=== PATIENT | male | born 1955 | race Caucasian/White ===

== ENCOUNTER 2019-04-04 15:41 | Emergency (ER) ==
[2019-04-04 15:44] VITALS: BMI 31.9
--- NOTE | 2019-04-04 16:08 | ED.PDOC ---
General Stated Complaint: Left hip pain X 2 weeks. 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 Denies difficulty with urination or BM. Pain L hip with ambulation. Nothing makes bettter but by preference lays on right side or back. No falls or precipitating event Time Seen by Physician: 16:00 Mode of Arrival: Wheelchair Information Source: Patient Exam Limitations: No limitations Nursing and Triage Documentation Reviewed and Agree: Yes Does patient meet sepsis criteria?: No System Inflammatory Response Syndrome: Not Applicable <KARAN STARR - Last Filed: 04/04/19 19:16> <PREMA RIVERA - Last Filed: 04/04/19 22:13> ED Provider: Dr. PREMA RIVERA Chief Complaint: Hip Pain/Injury Sepsis Protocol: For patient's 13 years and over: Temp is 96.8 and below OR 101 and greater Pulse >90 BPM Resp >20/minute Acutely Altered Mental Status Are patient's symptoms suggestive of a new infection, such as: -Pneumonia -Skin, Soft Tissue -Endocarditis -UTI -Bone, Joint Infection -Implantable Device -Acute Abdominal Infection -Wound Infection -Meningitis -Blood Stream Catheter Infection -Unknown Review of Systems - Review Of Systems Constitutional: Reports: No symptoms Respiratory: Reports: No symptoms Cardiac: Reports: No symptoms GI: Reports: No symptoms : Reports: No symptoms Musculoskeletal: Reports: Joint pain (L hip) Skin: Reports: No symptoms Neurological: Reports: No symptoms All Other Systems: Reviewed and Negative <MATTYKARAN - Last Filed: 04/04/19 19:16> Past Medical History - Past Medical History Previously Healthy: Yes Endocrine: Reports: None Cardiovascular: Reports: None Respiratory: Reports: None Hematological: Reports: None Gastrointestinal: Reports: None Genitourinary: Reports: None Neuro/Psych: Reports: None Musculoskeletal: Reports: None Cancer: Reports: None - Surgical History General Surgical History: Reports: Unknown - Family History Family History: Reports: Unknown - Social History Smoking Status: Never smoker Hx Substance Use: No Alcohol Screening: None <KARAN STARR - Last Filed: 04/04/19 19:16> Physical Exam - Physical Exam Appearance: Ill-appearing Ill-appearing: Mild Pain Distress: Moderate Neck: Supple Respiratory: Airway patent, Breath sounds clear, Breath sounds equal Cardiovascular: RRR, Pulses normal GI/: Soft, Nontender (Except L groin pain) Musculoskeletal: Normal strength, ROM intact Skin: Warm, Dry, Normal color Neurological: Sensation intact, Motor intact, Alert, Oriented Psychiatric: Affect appropriate, Mood appropriate <KARAN STARR - Last Filed: 04/04/19 19:16> Interpretation - Radiology Interpretation Radiology Interpretation By: Radiologist Radiology Results: No acute changes Exam Interpreted: Other (R hip) <KARAN STARR - Last Filed: 04/04/19 19:16> Re-Evaluation - Re-Evaluation Time of Re-Evaluation: 18:30 Status: Improved (Still with discomfor - but better - "took the edge off"; cant find a comfortable position) Vital Signs Stable: Yes Appearance: NAD Neuro: Alert and Oriented X3 <KARAN STARR - Last Filed: 04/04/19 19:16> Physician Notification - Case Discussed Endorsed To/Discussed With: Dr. Rivera Time of Discussion: 19:10 <KARAN STARR - Last Filed: 04/04/19 19:16> - Case Discussed Physician Notified: Dr Floyd <PREMA RIVERA - Last Filed: 04/04/19 22:13> Critical Care Note - Critical Care Note Total Time (mins): 45 <PREMA RIVERA - Last Filed: 04/04/19 22:13> Course <KARAN STARR - Last Filed: 04/04/19 19:16> - Course Hematology/Chemistry: 04/04/19 19:40 04/04/19 19:40 <PREMA RIVERA - Last Filed: 04/04/19 22:13> - Course Orders, Labs, Meds: Lab Review 04/04/19 04/04/19 04/04/19 18:04 19:40 19:40 WBC 10.98 H RBC 4.54 L Hgb 9.7 L Hct 32.4 L MCV 71.4 L MCH 21.4 L MCHC 29.9 L RDW Coeff of Josr 17.8 H Plt Count 214 Immature Gran % (Auto) 0.4 Neut % (Auto) 78.9 Lymph % (Auto) 13.2 [place] % (Auto) 5.3 Eos % (Auto) 1.7 Baso % (Auto) 0.5 Immature Gran # (Auto) 0.0 Neut # (Auto) 8.7 H Lymph # (Auto) 1.5 [place] # (Auto) 0.6 Eos # (Auto) 0.2 Baso # (Auto) 0.1 Sodium 139.0 Potassium 4.22 Chloride 109.3 H Carbon Dioxide 25.4 Anion Gap 8.52 BUN 17.5 Creatinine 0.86 Estimated GFR (MDRD) 90.00 BUN/Creatinine Ratio 20.34 Glucose 107.8 H Calcium 8.87 Total Bilirubin 0.23 AST 39.1 ALT 51.8 H Alkaline Phosphatase 75.3 Total Creatine Kinase 351.5 H CK-MB (CK-2) 4.690 H CK-MB (CK-2) % 1.3300 Total Protein 6.58 Albumin 3.94 Globulin 2.64 Albumin/Globulin Ratio 1.49 Amylase 67.9 Lipase 92.2 Urine Color Yellow Urine Clarity Clear Urine pH 6.5 Ur Specific [place] 1.025 Urine Protein Negative Urine Glucose (UA) Negative Urine Ketones Negative Urine Blood Negative Urine Nitrite Negative Urine Bilirubin Negative Urine Urobilinogen 0.2 Ur Leukocyte Esterase Negative Stl Occult Blood (IFOB) Stool Occult Blood #2 Stool Occult Blood #3 04/04/19 21:45 WBC RBC Hgb Hct MCV MCH MCHC RDW Coeff of [place] Plt Count Immature Gran % (Auto) Neut % (Auto) Lymph % (Auto) [place] % (Auto) Eos % (Auto) Baso % (Auto) Immature Gran # (Auto) Neut # (Auto) Lymph # (Auto) [place] # (Auto) Eos # (Auto) Baso # (Auto) Sodium Potassium Chloride Carbon Dioxide Anion Gap BUN Creatinine Estimated GFR (MDRD) BUN/Creatinine Ratio Glucose Calcium Total Bilirubin AST ALT Alkaline Phosphatase Total Creatine Kinase CK-MB (CK-2) CK-MB (CK-2) % Total Protein Albumin Globulin Albumin/Globulin Ratio Amylase Lipase Urine Color Urine Clarity Urine pH Ur Specific [place] Urine Protein Urine Glucose (UA) Urine Ketones Urine Blood Urine Nitrite Urine Bilirubin Urine Urobilinogen Ur Leukocyte Esterase Stl Occult Blood (IFOB) Negative Stool Occult Blood #2 Pending Stool Occult Blood #3 Pending Orders Category Date Time Status EKG-(ED ONLY) Stat CARDIO 04/04/19 20:41 Ordered NPO REMINDER: IMAGING ONCE CARE 04/04/19 19:30 Completed AMYLASE Stat LAB 04/04/19 19:40 Completed CBC W/ AUTO DIFF Stat LAB 04/04/19 19:40 Completed COMPREHENSIVE METABOLIC PANEL Stat LAB 04/04/19 19:40 Completed CREATINE KINASE Stat LAB 04/04/19 19:40 Completed LIPASE Stat LAB 04/04/19 19:40 Completed OCCULT BLOOD, STOOL Stat LAB 04/04/19 21:45 Results URINALYSIS C & S IF INDICATED Stat LAB 04/04/19 18:04 Completed Hydromorphone HCl [Dilaudid 1 mg/ml Syringe] MEDS 04/04/19 19:33 Discontinued 1 mg IVP ONCE STA Hydromorphone HCl [Dilaudid 1 mg/ml Syringe] MEDS 04/04/19 20:59 Discontinued 1 mg IVP ONCE STA Ketorolac Tromethamine [Toradol] MEDS 04/04/19 17:01 Discontinued 30 mg IVP ONCE STA Sodium Chloride 0.9% [Sodium Chloride] 1,000 ml MEDS 04/04/19 17:[address] ABDOMEN/PELVIS W/WO CONTRAS Stat RADS 04/04/19 19:28 Completed HIP, LEFT 2 VIEWS Stat RADS 04/04/19 16:13 Completed Medications Discontinued Medications Generic Name Dose Route Start Last Admin Trade Name Freq PRN Reason Stop Dose Admin Hydromorphone HCl 1 mg 04/04/19 19:33 04/04/19 19:40 Dilaudid 1 Mg/Ml Syringe IVP 04/04/19 19:34 1 mg ONCE STA Administration Hydromorphone HCl 1 mg 04/04/19 20:59 04/04/19 21:02 Dilaudid 1 Mg/Ml Syringe IVP 04/04/19 21:00 1 mg ONCE STA Administration Sodium Chloride 1,000 mls @ 1,000 mls/hr 04/04/19 17:01 04/04/19 17:23 Sodium Chloride IV 04/04/19 18:00 1,000 mls/hr BOLUS STA Administration Ketorolac Tromethamine 30 mg 04/04/19 17:01 04/04/19 17:23 Toradol IVP 04/04/19 17:02 30 mg ONCE STA Administration Vital Signs: Temp Pulse Resp BP Pulse Ox 04/04/19 15:42 96.9 F L 62 16 179/52 H 94 L Departure <KARAN STARR - Last Filed: 04/04/19 19:16> - Departure Time of Disposition: 22:13 Pt referred to PMD for follow-up: Yes IPMP verified?: No <KRISHANTASIAPREMA - Last Filed: 04/04/19 22:13> - Departure Disposition: HOME SELF-CARE Discharge Problem: Hip pain, Left groin pain Condition: Stable Allergies/Adverse Reactions: Allergies Penicillins Adverse Reaction (Verified 04/04/19 15:43) Home Medications: Ambulatory Orders Aspirin/Calcium Carbonate/Mag [Aspirin Buffered 325 Mg Tab] 325 mg PO DAILY 11/25 Multivitamin [Multi Vitamin Daily] 1 each PO DAILY 01/15/14 [place]-3 Fatty Acids/Fish Oil [Fish Oil 1,000 Mg Softgel] 1 each PO DAILYWM 01/15 Omeprazole [Prilosec] 40 mg PO DAILY 01/15/14 Diclofenac Sodium 75 mg PO BID 04/04/19
--- NOTE | 2019-04-04 16:39 | DI ---
EXAM: Left hip two-view HISTORY: Left hip pain COMPARISON: None FINDINGS: No fracture or dislocation. Mild osteoarthritis left hip with mild joint space narrowing o steophyte formation. No focal soft tissue abnormality. IMPERSSION: Mild osteoarthritis left hip
[2019-04-04] MEDS: SODIUM CHLORIDE 1,000 ML IV STA (17:23)
[2019-04-04] MEDS: TORADOL IVP STA (17:23)
[2019-04-04] MEDS: DILAUDID 1 MG/ML SYRINGE IVP STA ×2 (19:40→21:02)
--- NOTE | 2019-04-04 21:11 | CT ---
EXAM: CT abdomen pelvis without with intravenous contrast 04/04/2019. Sagittal and coronal reformat perla images obtained HISTORY: Left lower quadrant pain COMPARISON: 09/07/2014 FINDINGS: Hepatic steatosis. The liver, gallbladder, adrenal glands and kidneys show no acute abnor mality. No urinary obstruction. Unremarkable urinary bladder. The spleen and pancreas show no acute abnormality. There is no bowel obstruction. The appendix is normal. No free air or free fluid. Slightly prominent mesenteric lymph nodes. Lymph node within the left central abdominal mesentery im age 61 measures 1.6 x 1.5 cm diameter. This is indeterminate. This is slightly increased since the previous study. No acute osseous abnormality. Avascular necrosis of the right femoral head IMPRESSION: 1. Hepatic steatosis. 2. No urinary or bowel obstruction and normal appendix. 3. Indeterminate mesenteric lymphadenopathy slightly increased since the prior study. Reference caroline surements above. 4. 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
[2019-04-04] MEDS: STADOL IVP STA (22:16)
[2019-04-04 22:36] VITALS: BP 145/82; TEMP 97.9
== END 2019-04-04 22:50 | disposition short-term general hospital (02) ==
LOC: ED 15:41
DX: M25.552 Pain in left hip (principal); R10.32 Left lower quadrant pain; M54.5 Low back pain
CPT/HCPCS: 36415; 80053; 81001; 82150; 82272; 82550; 82553; 83690; 85025; 93005; 93010; 96361; 96374; 96375; 96376; 99285

== ENCOUNTER 2019-04-04 22:50 | Outpatient (CLI) ==
[2019-04-04 15:44] VITALS: BMI 31.9
== END 2019-04-04 23:10 | disposition short-term general hospital (02) ==
LOC: AMBL 22:50
PROVIDERS: ATTEND Internal Medicine Geriatric Medicine
DX: R10.9 Unspecified abdominal pain (principal)